=== PATIENT | female | born 1940 | race Caucasian/White ===

== ENCOUNTER 2016-12-19 19:02 | Inpatient (IN) | payer MEDICARE, OTHER ==
--- NOTE | ~2016-12-19 | CN ---
Consultation Report [facility] [address] [place]. [address] NAME: BRANDON RIVAS : 38 STATUS : ADM IN PAT#: [id number] AGE: 76 ADM/REG DATE : 12/20/16 MR#: [id number] REPORT SERV DATE: 12/23/16 DICTATED BY: MEKA CASTRO DATE: 12/22/16 REPORT STATUS : Draft TRANSCRIBED BY: MODL DATE: 12/22/16 DATE OF CONSULTATION: REASON FOR CONSULTATION: Acute kidney injury on chronic kidney disease with the patient planned for a cardiac catheterization. HISTORY OF PRESENT ILLNESS: This is a very pleasant 76-year-old female patient followed by Dr. Yunier Parmar in [place], [place]. Baseline creatinine appears to be around 1.1 to 1.5. The patient presents to [facility] with complaints of chest pain which is worse on exertion with what she terms as a "racing" heart rate. Cardiac catheterization is tentatively planned for tomorrow as she has been found to have an abnormal stress by evaluation. Historically, she has had a previous CABG x3 with previous cardiac stents and also noted to have a renal stent. Creatinine on 12/20/2016 was at 1.71, on 12/22/2016 at 2.54, and this afternoon at 2.37. The patient reports no episodes of nausea, vomiting, or diarrhea. No chronic use of nonsteroidal medications and no recent contrast medium exposure. She has had a previous CABG x3 vessels as stated above and previous renal stenting. She does not chronically smoke but has been exposed to chronic secondhand smoke historically by her spouse. She is awake and alert this afternoon. Her family is at bedside. She denies current chest pain. No nausea, vomiting, or diarrhea and is in no acute distress. PAST MEDICAL HISTORY: Positive for chronic kidney disease stage 3, followed by Dr. Yunier Parmar. Baseline creatinine as reflected above in HPI. History is also positive for previous CABG x3 in 2001 with subsequent PCI SVG to the RCA on 04/24/2015, previous drug- eluting stent to the SVG and RCA in March of 2012, and a previous pseudoaneurysm post cardiac catheterization with right groin MRSA. The remainder of her history is also positive for hypertension, hyperlipidemia, renal artery stent as listed above, cirrhosis, and splenomegaly. REVIEW OF SYSTEMS: Completed. Please see HPI for pertinent details. SOCIAL HISTORY: No ETOH. No illicit drugs. No tobacco. Again, she was exposed to a large amount of chronic secondhand smoke throughout her life span starting with her father and with her spouse. ALLERGIES: SHE LISTS ALLERGIES TO SULFA, IRON, AND SOY. MEDICATIONS: Amlodipine 5 mg p.o. at bedtime, ASA 81 mg daily, Coreg 6.25 mg p.o. b.i.d., Celexa 20 mg p.o. at bedtime, Plavix 75 mg p.o. daily, Lofibra 160 mg p.o. daily, Flonase nose spray 1-2 daily JOSE G p.r.n., Lantus 30 units subcu at bedtime, NovoLog via sliding scale, Imdur 30 mg p.o. at bedtime, Prinivil 10 mg p.o. daily, Prilosec OTC 20 mg p.o. daily, Pravachol 20 mg p.o. at bedtime, and Geritol 1 tablet p.o. daily, and vitamin D over the counter with unknown strength. Consultation Report [place] [id number] [facility] [place]. [address] NAME: BRANDON RIVAS : 38 STATUS : ADM IN [facility]#: [id number] AGE: 76 ADM/REG DATE : 12/20/16 MR#: [id number] REPORT SERV DATE: 12/23/16 DICTATED BY: MEKA CASTRO DATE: 12/22/16 REPORT STATUS : Draft TRANSCRIBED BY: SELAM DATE: 12/22/16 FAMILY HISTORY: Noncontributory, not reviewed during this consultation and dictation. PHYSICAL EXAMINATION: VITAL SIGNS: Blood pressure 136/63, temperature 98.9, respiratory rate of 18, heart rate 83 beats per minute, and 96% on room air. GENERAL: She is awake, alert, and oriented x3. No acute distress. HEENT: Normocephalic and atraumatic. Normal ocular movements. No scleral icterus or conjunctival pallor is appreciated. NECK: Supple without thyromegaly. No JVD, no mass. CHEST: Positive S1 and S2. No rubs or gallops. LUNGS: Diminished. Clear to auscultation throughout without rhonchi or wheezes. Normal expansion and effort bilaterally. GI: Positive bowel sounds in all four quadrants. No appreciable mass. No tenderness. : Deferred. EXTREMITIES: Positive pulses. No clubbing, cyanosis, or edema. NEUROLOGIC: Appears to be grossly intact. Nonfocal. SKIN: Warm, dry, and intact visualized surfaces. No rash, lesions, or ecchymosis. LABORATORY DATA: Pertinent laboratories and imaging to this evaluation: Sodium 141, potassium 4.6, chloride 109, CO2 of 24, BUN 38, creatinine 2.37, with a reflected GFR of 19 mL/minute. Glucose of 84 and calcium 8.5. Most recent CBC with white blood cell count of 3.6, RBC 3.40, hemoglobin at 10.2, hematocrit 29.4, and platelets at 114. IMPRESSION AND PLAN: This is a chronic kidney disease stage 3 patient with baseline creatinine of 1.1 to 1.5, followed by Dr. Yunier Parmar with creatinine elevating as reflected in HPI with creatinine currently at 2.37 with plans tentatively for a cardiac catheterization. She has a known history of coronary artery disease with previous CABG x3 and multiple stents including as well a renal stent, previous pseudoaneurysm post cardiac catheterization, chronically low platelets as reflected in her previous laboratories here at [facility], mildly depressed hemoglobin, and a mildly depressed white count today. Discussed in detail with the patient and daughter possible outcomes of cardiac catheterization and the current high risk of patient for contrast-induced nephropathy. The patient states that her chest pain is stable at the current time, and she has not experienced active chest pain since admission without exertion. Given her nonelevated troponins and high risk for contrast-induced nephropathy with creatinine at 2.37, would advise at this point to hold cardiac catheterization. Due to high risk of contrast-induced nephropathy with her elevated creatinine, would check urine sodium, urine creatinine, urine urea, renal ultrasound with Doppler considering her previous known renal artery stent, check postvoid residual, stop lisinopril, and decrease IV fluids to 100 mL/h. The patient is advised of her current clinical situation as well as her daughter and are currently in agreement with current plan of care. As the patient's creatinine hopefully subsides closer to her previous baseline around 1.5, she would likely benefit from cardiac catheterization with optimization with IV fluids prior to the procedure. Place the patient on strict I's and Os. Check postvoid residual. Follow closely with serial laboratories with plans likely for cardiac catheterization when creatinine subsides to near baseline of 1.5. Modify treatment plan Consultation Report [facility] [address] [place]. [address] NAME: BRANDON RIVAS : 38 STATUS : ADM IN PAT#: [id number] AGE: 76 ADM/REG DATE : 12/20/16 MR#: [id number] REPORT SERV DATE: 12/23/16 DICTATED BY: MEKA CASTRO DATE: 12/22/16 REPORT STATUS : Draft TRANSCRIBED BY: SELAM DATE: 12/22/16 based on clinical presentation, patient laboratory results, further consultation with Renal attending. We appreciate consultation. We are glad to follow with you. DICTATED BY: Manoj Hernandez NP JR/SELAM Meka Castro M.D. / [id number] CC: Dedra Kumar, MSN, COFFEE ATTENDANT-BC
--- NOTE | ~2016-12-19 | DS ---
Discharge Summary [facility] [address] [place]. [address] NAME: BRANDON RIVAS : 38 STATUS : DIS IN PAT#: [id number] AGE: 76 ADM/REG DATE : 12/20/16 MR#: [id number] REPORT SERV DATE: 12/26/16 DICTATED BY: JOSE ESCALANTE DATE: 12/25/16 REPORT STATUS : Draft TRANSCRIBED BY: MODJarrod DATE: 12/25/16 ADMISSION DATE: 12/20/2016 DISCHARGE DATE: 12/25/2016 CONDITION ON DISCHARGE: Stable. DISPOSITION: Discharged to home. There is no home health at this time as the patient states that she does not need one and refuses one. ADVICE ON DISCHARGE: The patient to follow up with PCP in the next one-two weeks and with Cardiology and Nephrology as scheduled before. DIAGNOSES ON DISCHARGE: 1. Atypical chest pain-resolved. The patient underwent cardiac catheterization that showed no significant blockages in any of the coronary arteries. 2. Coronary artery disease, status post CABG in the 1998, which is stable at this time. 3. Ischemic cardiomyopathy with an ejection fraction of about 47% and this is stable at this time and the patient's symptoms are managed with medications that she takes for chronic systolic and diastolic heart failure. 4. Chronic kidney disease, stage 3. This is stable. 5. Hypertension, this is stable. 6. Dyslipidemia, this is stable. 7. Insulin-requiring diabetes mellitus, which is also stable. 8. Anxiety and depression, stable. 9. History of renal stenting, stable. 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 BRIEF HOSPITAL COURSE: The patient is a pleasant 76-year-old white female patient who was admitted with signs and symptoms as outlined in history and physical exam. Essentially, she was admitted with chest pain, and as this patient has known cardiac problems before and has a history of coronary artery disease status post CABG and ischemic cardiomyopathy, she was admitted for further evaluation and workup. Cardiology was consulted. The patient underwent an echocardiogram and a stress test that revealed that the patient did have wall motion abnormalities in the left ventricle. After that, the patient even underwent a cardiac catheterization. Her cardiac catheterization was delayed a little bit because of her acute kidney injury. Once her creatinine stabilized to baseline, the patient did undergo cardiac catheterization and coronary angiography revealed that the patient did not have any significant coronary artery disease in any of the bypassed coronary blood vessels either. Next, her atypical chest pain that she had upon admission also completely resolved. On 12/25/2016, the patient feels fine. She denies any chest pain. Her shortness of breath is at baseline and the patient is able to do most activities by herself. She is ambulatory and she is eating and tolerating p.o. really well. Hence, she is being discharged home in stable condition with advice to continue the following medications. Hence, a new medication has been added on this patient and it is Aldactone 25 mg once a day. Given the risk of Discharge Summary [address] [place]. [address] NAME: BRANDON RIVAS : 38 STATUS : DIS IN PAT#: [id number] AGE: 76 ADM/REG DATE : 12/20/16 MR#: [id number] REPORT SERV DATE: 12/26/16 DICTATED BY: JOSE ESCALANTE DATE: 12/25/16 REPORT STATUS : Draft TRANSCRIBED BY: SELAM DATE: 12/25/16 hyperkalemia, her MENDEZ inhibitor/ARB have been discontinued at this time. Hence, the patient will be on Aldactone 25 mg once a day, aspirin 325 mg once a day, Celexa 20 mg once a day, Coreg 6.25 mg p.o. b.i.d., Imdur 30 mg p.o. at bedtime, Levemir 30 units at bedtime, Lofibra 160 mg at bedtime, Norvasc 5 mg p.o. at bedtime, low-dose NovoLog injection sliding scale level 1, Plavix 75 mg once at bedtime, Pravachol 20 mg once at bedtime, Protonix 40 mg once a day, and her multivitamin and mineral tablets. LABS: Most recent labs upon discharge include the following: The patient's CBC has come back with WBC count of 3.4, hemoglobin 9.9, hematocrit of 28.1, and platelet count of 109, which are all chronically low for this patient. Electrolyte profile has come back with sodium 144, potassium 4.4, BUN is 17, creatinine is 1.69, which is pretty much her baseline creatinine as the patient does have chronic kidney disease. Her hemoglobin A1c has come back at 6.4 reflecting well-controlled diabetes mellitus at this time. Other tests that the patient underwent during hospitalization also include bilateral renal artery Doppler ultrasound that showed no renal artery stenosis at this time. Hence, the stents she had previously appear like they worked and are patent. Consults obtained during this hospitalization include Cardiology consult, and other than that, the patient has been doing well. She is being discharged home in stable condition with advice as above, and I have spent about 40 minutes in coordinating discharge care of this patient including [id number] encounter and summarizing this discharge. RRA/MODL Jose Escalante M.D. / [id number] CC: Dedra Kumar, MSN, DRYWALL METAL STUD WORKER-BC [employer]
--- NOTE | ~2016-12-19 | HP ---
History And Physical [address] [address] NAME: BRANDON RIVAS : 38 STATUS : DIS IN PAT#: [id number] AGE: 76 ADM/REG DATE : 12/20/16 MR#: [id number] REPORT SERV DATE: 01/01/17 DICTATED BY: MASSIMO RAMÍREZ DATE: 01/01/17 REPORT STATUS : Cancelled TRANSCRIBED BY: MODL DATE: 01/01/17 DATE OF ADMISSION: 12/20/2016 ADDENDUM: VITAL SIGNS: Bilateral blood pressures on arrival, right 151/71, left 146/58, this morning 154/79; pulse 77; respirations 17; temperature 98.4; O2 saturation 97% on room air. Height 5 feet 2 inches. Weight 136 pounds. BMI of 24.9. LAB WORK: Troponin less than 0.02 x3. Potassium 4.6, BUN 39, creatinine 1.90, glucose 181, magnesium 2.40. WBC. 5.6, hemoglobin 11.6, hematocrit 32.8, platelet count 142,000. GONZALEZ/SELAM NOEMI Paiz, DOUGHNUT ICER-BC / [id number] CC: NOEMI Paiz, DOUGHNUT ICER-BC Lizbeth Terry
--- NOTE | ~2016-12-19 | HP ---
History And Physical [place] [id number] [place]. [address] NAME: BRANDON RIVAS : 38 STATUS : DIS IN PAT#: [id number] AGE: 76 ADM/REG DATE : 12/20/16 MR#: [id number] REPORT SERV DATE: 01/02/17 DICTATED BY: DEDRA RAMÍREZ DATE: 12/20/16 REPORT STATUS : Draft TRANSCRIBED BY: SELAM DATE: 12/20/16 DATE OF ADMISSION: 12/19/2016 PLANT TENDER: Vladimir Loco M.D. CHIEF COMPLAINT: Chest pressure similar to previous. HISTORY OF PRESENT ILLNESS: A very pleasant 76-year-old white female with known history of CAD, status post CABG x4 in 1998 with ASHLEY to vein graft to RCA, 03/2015, by Dr. Nova. At that time, she had a patent vein graft to the LAD and OM with an EF of 45%. The patient states that on 12/19/2016, around 06:30, she awoke, went to the bathroom and came back to bed, and once back in bed developed some chest pressure that radiated to her left neck, similar to previous cardiac events. She describes associated shortness of breath, nausea, and belching. Denies diaphoresis or dizziness. At its most intense, she rates her chest pain as 7/10. At time of interview in the CPOU, it is minimal. She states that it waxed and waned all day long. She was able to run some errands and go to the [employer] but still felt "funny." There is no clear pattern to her episode. She denies any exertional component, nothing stressful, argumentative, or confrontational. She does feel that she may have awoke following a nightmare as she states that her heart was "just racing." The patient confirms a personal history of one heart attack. Denies history of stroke, DVT, or pulmonary embolus. The patient denies any recent fever or chills. No palpitations. No syncopal episodes. Denies PND or orthopnea. PAST MEDICAL HISTORY: 1. CAD. a. Status post CABG x4, 12/1998. b. Self-reports [place] x1. c. ASHLEY to vein graft to RCA, 2011 and 2014. 2. Hypertension. 3. Dyslipidemia. 4. Insulin-dependent diabetes mellitus. 5. Anxiety. 6. Depression. 7. Renal stent. 8. GERD. 9. Positive family history for early CAD. PAST SURGICAL HISTORY: 1. CABG x4 in 1998. 2. Lumbar surgery. 3. Hysterectomy. 4. Bilateral total knee. 5. Bilateral hip replacement. 6. Left elbow surgery. History And Physical [address] [address] NAME: BRANDON RIVAS : 38 STATUS : DIS IN PAT#: [id number] AGE: 76 ADM/REG DATE : 12/20/16 MR#: [id number] REPORT SERV DATE: 01/02/17 DICTATED BY: DEDRA RAMÍREZ DATE: 12/20/16 REPORT STATUS : Draft TRANSCRIBED BY: SELAM DATE: 12/20/16 708/2016, fracture of left leg with splenic tear. 8. Cataract repair. 9. Appendectomy. 10.Cholecystectomy. 11.Tonsillectomy. SOCIAL HISTORY: She is with one child. She is retired from a [employer]. Exercises daily with continuing physical therapy exercises for knee, hip, and leg for a recent fractured leg. Denies tobacco, alcohol, or illicits. FAMILY HISTORY: Mother with heart attack and bypass in her 50s, at 84. Father with multiple TIAs, at 90. Brother with CAD and CABG in his 50s, remains alive at the age of 75. REVIEW OF SYSTEMS: A 14-point review of systems performed significant for HPI. No other contributory diagnoses identified. ALLERGIES: TO SULFA, CLOSES THROAT; IRON, DIARRHEA; AND SOY, DIARRHEA. HOME MEDICINES: Aspirin 81 mg twice daily, carvedilol 6.25 mg twice daily, Celexa 20 mg nightly, clopidogrel 75 mg nightly, fenofibrate 150 mg nightly, Flonase spray p.r.n., Lantus insulin 30 units at bedtime, Humulin R sliding scale, isosorbide 30 mg nightly, lisinopril 10 mg nightly, omeprazole 20 mg nightly, pravastatin 20 mg nightly, Norvasc unknown dose nightly, diltiazem unknown dose nightly, Geritol nightly, vitamin D nightly, and Tylenol p.r.n. PHYSICAL EXAMINATION: BLOOD PRESSURE: Bilateral blood pressures on arrival, right 160/72, left 153/70, this morning 146/64. PULSE: 57. RESPIRATORY RATE: 16. TEMPERATURE: 97.7. O2 saturation 97 % on room air. HEIGHT: 5 feet 2 inches. WEIGHT: 186 pounds. BMI 34. GENERAL: Cooperative, in no apparent distress. HEENT: Pupils 2 mm, sclera nonicteric. Nares patent. Moist mucous membranes. No xanthelasma. NECK: Trachea midline, no thyromegaly. No JVD. No bruits. LYMPH: No cervical lymphadenopathy. No supraclavicular lymphadenopathy. RESPIRATORY: Unlabored respirations. Breath sounds clear bilaterally to posterior auscultation. No wheezes or rhonchi. Tender to palpation across the anterior chest on exam. CARDIOVASCULAR: Regular rate. No murmur, rub or gallop appreciated. Extremities with bilateral trace ankle edema. Pulses 2+ bilaterally. ABDOMEN: Soft, nontender, nondistended, normal bowel sounds auscultated throughout. No organomegaly. SKIN: Warm, dry extremities. No pallor, or cyanosis. PSYCHIATRIC: Appropriate affect. Alert, oriented x3. VITAL SIGNS: Bilateral blood pressures on arrival, right 151/71, left 146/58, this morning 154/79; pulse 77; respirations 17; temperature 98.4; O2 saturation 97% on room air. Height 5 feet 2 inches. Weight 136 pounds. BMI of 24.9. History And Physical [address] [address] NAME: BRANDON RIVAS : 38 STATUS : DIS IN PAT#: [id number] AGE: 76 ADM/REG DATE : 12/20/16 MR#: [id number] REPORT SERV DATE: 01/02/17 DICTATED BY: DEDRA RAMÍREZ DATE: 12/20/16 REPORT STATUS : Draft TRANSCRIBED BY: SELAM DATE: 12/20/16 LAB WORK: Troponin less than 0.02 x3. Potassium 4.6, BUN 39, creatinine 1.90, glucose 181, magnesium 2.40. WBC. 5.6, hemoglobin 11.6, hematocrit 32.8, platelet count 142,000. EKG: Sinus rhythm. Echo, 02/2016: EF 40%. Mild atrial dilatation (4 cm). Mild mitral regurgitation. MPI, 02/2016: Previous infarct, but no current ischemia. EF 30%. High risk secondary to low EF. PCI, 03/2015 (Dr. Nova): ASHLEY to VG to RCA. Patent VG to LAD and VG to OM. EF 45%. ASSESSMENT AND PLAN: 1. Substernal chest pain, reportedly similar. The patient has been observed in the CPOU overnight to rule out myocardial infarction with serial enzymes and serial EKGs and held n.p.o. We will proceed with MPI today. The patient will be discharged home if low risk, no ischemia. If anything suggestive of ischemia, Cardiology referral will be initiated. Otherwise, the patient will be asked to follow up with PCP and Dr. Loco as appropriate. 2. Coronary artery disease, continue home medications. 3. Hypertension, monitor blood pressure and continue home medications. 4. Dyslipidemia, continue statin. 5. Insulin dependent diabetes mellitus, level 1 sliding scale correction. 6. Outdated nitroglycerin, a script will be provided at discharge. GONZALEZ/SELAM Dedra Ramírez, MSN, BODY FORMER-BC / [id number] CC: Dedra Ramírez, NOEMI, BODY FORMER-BC Dr. Farhan Loco M.D.
[2016-12-19 17:07] LABS: BASOPHILS 0.9 %; BASOPHILS ABSOLUTE 0.05 10/3/uL (0.0-0.16); EOSINOPHILS 11.6 %; EOSINOPHILS ABSOLUTE 0.65 10/3/uL (0.0-0.53); HEMOGLOBIN 11.6 g/dL (12.0-16.0); IMMATURE GRANULOCYTES 0.2 %; IMMATURE GRANULOCYTES ABSOLUTE 0.01 10/3/uL (0.0-0.11); LYMPHOCYTES 17.5 %; LYMPHOCYTES ABSOLUTE 0.98 10/3/uL (0.67-4.30); MEAN CORPUS HGB CONC 35.4 g/dL (32.0-36.0); MEAN CORPUSCULAR HEMOGLOB 30.1 pg (26.0-34.0); MONOCYTES 5.5 %; MONOCYTES ABSOLUTE 0.31 10/3/uL (0.21-1.20); NEUTROPHILS 64.3 %; NEUTROPHILS ABSOLUTE 3.61 10/3/uL (2.02-8.40); RBC DISTRIBUTION WIDTH 14.4 % (12.0-16.0); RED CELL COUNT 3.85 10/6/uL (4.0-5.6); WHITE BLOOD CELLS 5.6 10/3/uL (4.5-10.5)
[2016-12-19 17:08] LABS: HEMATOCRIT 32.8 % (36.0-48.0); MEAN CORPUSCULAR VOLUME 85.2 fL (80-100)
[2016-12-19 17:09] LABS: MANUAL DIFF NO %; PLATELET COUNT 142 10/3/uL (150-400)
[2016-12-19 17:15] LABS: INTERNATIONAL NORMAL RATI 1.1 UNITS (-); PARTIAL THROMBO TIME 28.3 SEC (22.5-37.2); PROTIME (NOT ORD) 14.4 SEC (12.0-14.5)
[2016-12-19 17:21] LABS: BUN (BLOOD UREA NITROGEN) 39 MG/DL (6-23); CALCIUM, SERUM 9.3 MG/DL (8.5-10.4); CHEST PAIN PROFILE TAT 0 Hrs 18 Mins; CHLORIDE, SERUM 106 MMOL/L (96-112); CO2 (CARBON DIOXIDE) 27 MMOL/L (24-34); GFR AFRICAN AMERICAN 29 ML/MIN (>=60); GFR NON AFRICAN AMERICAN 25 ML/MIN (>=60); GLUCOSE, SERUM 181 MG/DL (60-99); POTASSIUM, SERUM 4.6 MMOL/L (3.5-5.3); SODIUM, SERUM 139 MMOL/L (135-148); TROPONIN I <0.02 NG/ML (<0.05)
[~2016-12-19 19:02] MED LIST: ACET500CAP PO; ALEVE220 MG PO; AMARYL4 PO; ANTIBIOTIC RX PO; ASAB PO; CELEXA20 PO; COREG PO; COREG3 PO; COREG6 PO; COREGCR40 PO; CRESTOR20 MG PO; FERREX 150150 MG PO; FLONASE NAS; HALF81 PO; HUMULIN R1 ML SC; IMDUR30 PO; LANTUS SC; LANTUSCART SC; LOFIB160 PO; LOPID6 PO; MULTIVIT/MIN PO; NEXIUM40 PO; NITROGLYCERIN PO; NORV5 PO; PLAVIX PO; PRAVAC PO; PRAVACHOL40 MG PO; PRILOSEC OTC20 MG PO; PRILOSEC40 MG PO; PRIN10 PO; PRIN20 PO; PRIN5 PO; REOCYTE PLUS OR; SLEEP AID OR; T PO; TYLENOL PM PO; VIB100 PO; VITAMIN D1000 UNI1 PO; ZOCOR10 PO; [UNRECOGNIZED DRUG - OTHER]
[2016-12-19] MEDS ORDERED: NORV5 PO (19:43)
[2016-12-19] MEDS ORDERED: COREG6 PO (19:44)
[2016-12-19] MEDS ORDERED: CELEXA20 PO (19:44)
[2016-12-19] MEDS ORDERED: PRAVAC PO (19:44)
[2016-12-19] MEDS ORDERED: ASAB PO (19:44)
[2016-12-19] MEDS ORDERED: DILTIAZEM PO (19:45)
[2016-12-19] MEDS ORDERED: PLAVIX PO (19:45)
[2016-12-19] MEDS ORDERED: LANTUS SC (19:45)
[2016-12-19] MEDS ORDERED: IMDUR30 PO (19:46)
[2016-12-19] MEDS ORDERED: PRILOSEC OTC20 MG PO (19:46)
[2016-12-19] MEDS ORDERED: PRIN10 PO (19:46)
[2016-12-19] MEDS ORDERED: HUMULIN R1 ML SC (19:46)
[2016-12-19] MEDS ORDERED: FLONASE NAS (19:47)
[2016-12-19] MEDS ORDERED: [UNRECOGNIZED DRUG - OTHER] PO (19:47)
[2016-12-19] MEDS ORDERED: VITAMIN D OTC PO (19:48)
[2016-12-19] MEDS ORDERED: LOFIBRA160 MG PO (19:49)
[2016-12-20 05:51] LABS: CALCIUM, SERUM 8.4 MG/DL (8.5-10.4); CHLORIDE, SERUM 108 MMOL/L (96-112); CO2 (CARBON DIOXIDE) 24 MMOL/L (24-34); CREATININE 1.71 MG/DL (0.55-1.02); GFR AFRICAN AMERICAN 33 ML/MIN (>=60); GFR NON AFRICAN AMERICAN 28 ML/MIN (>=60); GLUCOSE, SERUM 153 MG/DL (60-99); POTASSIUM, SERUM 4.3 MMOL/L (3.5-5.3); SODIUM, SERUM 141 MMOL/L (135-148)
[2016-12-20 05:53] LABS: BUN (BLOOD UREA NITROGEN) 33 MG/DL (6-23)
[2016-12-22 04:31] LABS: BASOPHILS 1.1 %; BASOPHILS ABSOLUTE 0.04 10/3/uL (0.0-0.16); EOSINOPHILS 12.3 %; EOSINOPHILS ABSOLUTE 0.44 10/3/uL (0.0-0.53); HEMOGLOBIN 10.2 g/dL (12.0-16.0); IMMATURE GRANULOCYTES 0.3 %; IMMATURE GRANULOCYTES ABSOLUTE 0.01 10/3/uL (0.0-0.11); LYMPHOCYTES 24.9 %; LYMPHOCYTES ABSOLUTE 0.89 10/3/uL (0.67-4.30); MEAN CORPUS HGB CONC 34.7 g/dL (32.0-36.0); MEAN CORPUSCULAR VOLUME 86.5 fL (80-100); MEAN PLATELET VOLUME 8.9 fL (9.2-13.0); MONOCYTES 6.4 %; MONOCYTES ABSOLUTE 0.23 10/3/uL (0.21-1.20); NEUTROPHILS ABSOLUTE 1.97 10/3/uL (2.02-8.40); PLATELET COUNT 114 10/3/uL (150-400); RBC DISTRIBUTION WIDTH 14.2 % (12.0-16.0); WHITE BLOOD CELLS 3.6 10/3/uL (4.5-10.5)
[2016-12-22 04:32] LABS: HEMATOCRIT 29.4 % (36.0-48.0); MANUAL DIFF NO %
[2016-12-22 04:34] LABS: INTERNATIONAL NORMAL RATI 1.2 UNITS (-); PROTIME (NOT ORD) 14.7 SEC (12.0-14.5)
[2016-12-22 05:00] LABS: A/G RATIO 1.2 (0.7-1.9); ALKALINE PHOSPHATASE 82 U/L (45-117); CALCIUM, SERUM 8.5 MG/DL (8.5-10.4); CHLORIDE, SERUM 108 MMOL/L (96-112); CO2 (CARBON DIOXIDE) 23 MMOL/L (24-34); GLOBULIN 2.9 G/DL (2.5-4.1); POTASSIUM, SERUM 4.5 MMOL/L (3.5-5.3); SGOT(AST) 12 U/L (5-40); SGPT(ALT) 21 U/L (5-65); SODIUM, SERUM 140 MMOL/L (135-148); TOTAL BILIRUBIN 0.6 MG/DL (0-1.2); TOTAL PROTEIN 6.3 G/DL (6.0-8.5)
[2016-12-22 05:03] LABS: ALBUMIN 3.4 G/DL (3.5-5.0); BUN (BLOOD UREA NITROGEN) 39 MG/DL (6-23); CHOL/HDL RATIO(NOT ORDER) 5.3 (0-5); CHOLESTEROL 184 MG/DL (< 200); CREATININE 2.54 MG/DL (0.55-1.02); GFR AFRICAN AMERICAN 20 ML/MIN (>=60); GFR NON AFRICAN AMERICAN 17 ML/MIN (>=60); GLUCOSE, SERUM 116 MG/DL (60-99); HDL CHOLESTEROL 35 MG/DL (> 49); LDL CHOLESTEROL 99 MG/DL (< 130); NON-HDL CHOLESTEROL 149 MG/DL (< 160); TRIGLYCERIDE 254 MG/DL (< 150)
[2016-12-22 12:13] LABS: BUN (BLOOD UREA NITROGEN) 38 MG/DL (6-23); CALCIUM, SERUM 8.5 MG/DL (8.5-10.4); CHLORIDE, SERUM 109 MMOL/L (96-112); CO2 (CARBON DIOXIDE) 24 MMOL/L (24-34); CREATININE 2.37 MG/DL (0.55-1.02); GFR AFRICAN AMERICAN 22 ML/MIN (>=60); GFR NON AFRICAN AMERICAN 19 ML/MIN (>=60); POTASSIUM, SERUM 4.6 MMOL/L (3.5-5.3); SODIUM, SERUM 141 MMOL/L (135-148)
[2016-12-22 12:15] LABS: GLUCOSE, SERUM 84 MG/DL (60-99)
[2016-12-23 03:56] LABS: CREATININE, URINE 45.9 MG/DL
[2016-12-23 05:40] LABS: BASOPHILS 0.6 %; BASOPHILS ABSOLUTE 0.02 10/3/uL (0.0-0.16); EOSINOPHILS 11.9 %; HEMATOCRIT 25.9 % (36.0-48.0); HEMOGLOBIN 9.2 g/dL (12.0-16.0); LYMPHOCYTES 19.3 %; LYMPHOCYTES ABSOLUTE 0.65 10/3/uL (0.67-4.30); MANUAL DIFF NO %; MEAN CORPUS HGB CONC 35.5 g/dL (32.0-36.0); MEAN CORPUSCULAR HEMOGLOB 30.7 pg (26.0-34.0); MEAN CORPUSCULAR VOLUME 86.3 fL (80-100); MEAN PLATELET VOLUME 9.4 fL (9.2-13.0); MONOCYTES 6.5 %; MONOCYTES ABSOLUTE 0.22 10/3/uL (0.21-1.20); NEUTROPHILS 61.7 %; NEUTROPHILS ABSOLUTE 2.07 10/3/uL (2.02-8.40); PLATELET COUNT 103 10/3/uL (150-400); RBC DISTRIBUTION WIDTH 14.1 % (12.0-16.0); WHITE BLOOD CELLS 3.4 10/3/uL (4.5-10.5)
[2016-12-23 06:03] LABS: CALCIUM, SERUM 8.3 MG/DL (8.5-10.4); CHLORIDE, SERUM 112 MMOL/L (96-112); CO2 (CARBON DIOXIDE) 20 MMOL/L (24-34); CREATININE 1.98 MG/DL (0.55-1.02); GFR AFRICAN AMERICAN 27 ML/MIN (>=60); GFR NON AFRICAN AMERICAN 24 ML/MIN (>=60); PHOSPHORUS, SERUM 3.1 MG/DL (2.5-4.5); POTASSIUM, SERUM 4.5 MMOL/L (3.5-5.3); SODIUM, SERUM 141 MMOL/L (135-148); TROPONIN I <0.02 NG/ML (<0.05)
[2016-12-23 06:05] LABS: BUN (BLOOD UREA NITROGEN) 31 MG/DL (6-23); GLUCOSE, SERUM 105 MG/DL (60-99)
[2016-12-24 04:56] LABS: BASOPHILS 0.8 %; BASOPHILS ABSOLUTE 0.02 10/3/uL (0.0-0.16); EOSINOPHILS ABSOLUTE 0.31 10/3/uL (0.0-0.53); HEMATOCRIT 24.7 % (36.0-48.0); HEMOGLOBIN 8.6 g/dL (12.0-16.0); LYMPHOCYTES 23.8 %; LYMPHOCYTES ABSOLUTE 0.57 10/3/uL (0.67-4.30); MEAN CORPUS HGB CONC 34.8 g/dL (32.0-36.0); MEAN CORPUSCULAR HEMOGLOB 30.2 pg (26.0-34.0); MEAN CORPUSCULAR VOLUME 86.7 fL (80-100); MONOCYTES 5.4 %; MONOCYTES ABSOLUTE 0.13 10/3/uL (0.21-1.20); NEUTROPHILS ABSOLUTE 1.36 10/3/uL (2.02-8.40); PLATELET COUNT 87 10/3/uL (150-400); RED CELL COUNT 2.85 10/6/uL (4.0-5.6)
[2016-12-24 05:12] LABS: WHITE BLOOD CELLS 2.4 10/3/uL (4.5-10.5)
[2016-12-24 05:13] LABS: MANUAL DIFF NO %
[2016-12-24 05:14] LABS: ALBUMIN 2.9 G/DL (3.5-5.0); CALCIUM, SERUM 8.5 MG/DL (8.5-10.4); CHLORIDE, SERUM 116 MMOL/L (96-112); CO2 (CARBON DIOXIDE) 20 MMOL/L (24-34); CREATININE 1.64 MG/DL (0.55-1.02); DIRECT BILIRUBIN 0.1 MG/DL (0.0-0.4); GFR AFRICAN AMERICAN 34 ML/MIN (>=60); GFR NON AFRICAN AMERICAN 30 ML/MIN (>=60); HDL CHOLESTEROL 29 MG/DL (> 49); INDIRECT BILIRUBIN(NOT ORDER) 0.4 MG/DL (0.1-0.9); POTASSIUM, SERUM 4.4 MMOL/L (3.5-5.3); SGOT(AST) 14 U/L (5-40); SGPT(ALT) 19 U/L (5-65); SODIUM, SERUM 146 MMOL/L (135-148); TOTAL BILIRUBIN 0.5 MG/DL (0-1.2); TOTAL PROTEIN 5.3 G/DL (6.0-8.5); TRIGLYCERIDE 219 MG/DL (< 150)
[2016-12-24 05:22] LABS: ALKALINE PHOSPHATASE 63 U/L (45-117); BUN (BLOOD UREA NITROGEN) 21 MG/DL (6-23); CHOL/HDL RATIO(NOT ORDER) 4.8 (0-5); CHOLESTEROL 138 MG/DL (< 200); GLUCOSE, SERUM 127 MG/DL (60-99); LDL CHOLESTEROL 66 MG/DL (< 130); NON-HDL CHOLESTEROL 109 MG/DL (< 160)
[2016-12-24 05:28] LABS: INTERNATIONAL NORMAL RATI 1.2 UNITS (-); PROTIME (NOT ORD) 15.2 SEC (12.0-14.5)
[2016-12-24 11:29] LABS: RETICULOCYTE COUNT 3.6 % (0.5-2.5)
[2016-12-24 14:26] LABS: FERRITIN 241 NG/ML (8-252); IRON BINDING CAPACITY 285 MCG/DL (225-410); IRON, SERUM 62 MCG/DL (35-150)
[2016-12-25 08:45] LABS: BASOPHILS 0.9 %; BASOPHILS ABSOLUTE 0.03 10/3/uL (0.0-0.16); EOSINOPHILS 10.1 %; EOSINOPHILS ABSOLUTE 0.34 10/3/uL (0.0-0.53); HEMOGLOBIN 9.9 g/dL (12.0-16.0); LYMPHOCYTES 19.3 %; LYMPHOCYTES ABSOLUTE 0.65 10/3/uL (0.67-4.30); MEAN CORPUS HGB CONC 35.2 g/dL (32.0-36.0); MEAN CORPUSCULAR HEMOGLOB 30.5 pg (26.0-34.0); MEAN CORPUSCULAR VOLUME 86.5 fL (80-100); MEAN PLATELET VOLUME 8.9 fL (9.2-13.0); MONOCYTES 6.2 %; MONOCYTES ABSOLUTE 0.21 10/3/uL (0.21-1.20); NEUTROPHILS 63.5 %; NEUTROPHILS ABSOLUTE 2.14 10/3/uL (2.02-8.40); PLATELET COUNT 109 10/3/uL (150-400); RED CELL COUNT 3.25 10/6/uL (4.0-5.6)
[2016-12-25 08:51] LABS: HEMATOCRIT 28.1 % (36.0-48.0); MANUAL DIFF NO %; WHITE BLOOD CELLS 3.4 10/3/uL (4.5-10.5)
[2016-12-25 08:54] LABS: BUN (BLOOD UREA NITROGEN) 17 MG/DL (6-23); CALCIUM, SERUM 8.6 MG/DL (8.5-10.4); CHLORIDE, SERUM 111 MMOL/L (96-112); CO2 (CARBON DIOXIDE) 23 MMOL/L (24-34); CREATININE 1.69 MG/DL (0.55-1.02); GFR AFRICAN AMERICAN 33 ML/MIN (>=60); GFR NON AFRICAN AMERICAN 29 ML/MIN (>=60); GLUCOSE, SERUM 137 MG/DL (60-99); POTASSIUM, SERUM 4.4 MMOL/L (3.5-5.3); SODIUM, SERUM 144 MMOL/L (135-148)
[2016-12-25] MEDS ORDERED: SPIRO25 PO (11:15)
== END 2016-12-25 16:53 | disposition home or self-care (01) | DRG 287 ==
LOC: ER 19:02 → CDU1 19:08 → CDU2 19:37 → 6NO 12-23 14:14
PROVIDERS: Clinical Nurse Specialist; Emergency Medicine; Internal Medicine Nephrology; Nurse Practitioner; Registered Nurse
PROC: 4A023N7 Measurement of Cardiac Sampling and Pressure, Left Heart, Percutaneous Approach (ICD-10-PCS; principal; 2016-12-24)
PROC: B2131ZZ Fluoroscopy of Multiple Coronary Artery Bypass Grafts using Low Osmolar Contrast (ICD-10-PCS; 2016-12-24)
PROC: B2111ZZ Fluoroscopy of Multiple Coronary Arteries using Low Osmolar Contrast (ICD-10-PCS; 2016-12-24)
PROC: B2151ZZ Fluoroscopy of Left Heart using Low Osmolar Contrast (ICD-10-PCS; 2016-12-24)
DX: I25.10 Atherosclerotic heart disease of native coronary artery without angina pectoris (principal); N17.9 Acute kidney failure, unspecified; D61.818 Other pancytopenia; E11.22 Type 2 diabetes mellitus with diabetic chronic kidney disease; N18.3 Chronic kidney disease, stage 3 (moderate); I50.42 Chronic combined systolic (congestive) and diastolic (congestive) heart failure; I13.0 Hypertensive heart and chronic kidney disease with heart failure and stage 1 through stage 4 chronic kidney disease, or unspecified chronic kidney disease; K74.69 Other cirrhosis of liver; I25.5 Ischemic cardiomyopathy; E78.00 Pure hypercholesterolemia, unspecified; R07.9 Chest pain, unspecified; F41.9 Anxiety disorder, unspecified; F32.9 Major depressive disorder, single episode, unspecified; E78.5 Hyperlipidemia, unspecified; K21.9 Gastro-esophageal reflux disease without esophagitis; R16.1 Splenomegaly, not elsewhere classified; K75.81 Nonalcoholic steatohepatitis (NASH); I25.2 Old myocardial infarction; Z95.1 Presence of aortocoronary bypass graft; Z79.4 Long term (current) use of insulin; Z95.5 Presence of coronary angioplasty implant and graft; Z88.2 Allergy status to sulfonamides; Z95.9 Presence of cardiac and vascular implant and graft, unspecified; Z94.9 Transplanted organ and tissue status, unspecified; Z96.653 Presence of artificial knee joint, bilateral; Z96.643 Presence of artificial hip joint, bilateral; Z82.3 Family history of stroke; Z82.49 Family history of ischemic heart disease and other diseases of the circulatory system; Z79.82 Long term (current) use of aspirin; Z77.22 Contact with and (suspected) exposure to environmental tobacco smoke (acute) (chronic); Z90.710 Acquired absence of both cervix and uterus
CPT/HCPCS: 71020; 78452; 80048; 80053; 80061; 80069; 80076; 82570; 82668; 82728; 82962; 83036; 83540; 83550; 83735; 83880; 84300; 84484; 84540; 85025; 85045; 85610; 85730; 93005; 93017; 93459; 93975; 96374; 99152; 99285; A9270-GY; A9502; C1769; C1894; J0153; J2250; J2405; J3010; P9045; Q9967